=== PATIENT | male | born 1995 | race Two or more races ===

== ENCOUNTER 2024-08-30 16:21 | Inpatient (IN) | payer OTHER ==
[~2024-08-30] VITALS: Ht 177.8 cm; Wt 65.9 kg
[2024-08-30 17:01] LABS: PLATELET COUNT (AUTO) 537 K/uL (150-450); RED BLOOD CELL COUNT(AUTO) 5.33 MIL/uL (4.50-5.90); RED CELL DISTRIBUTION WIDTH 14.8 % (11.5-14.5); WHITE BLOOD COUNT (AUTO) 7.6 K/uL (4.5-11.0)
[2024-08-30] MEDS: SODIUM CHLORIDE 0.9% 1,000 ML IV ONE ×2 (17:07→19:16)
[2024-08-30] MEDS: ONDANSETRON HCL 4 MG/2 ML VIAL IVP ONE ×2 (17:07→18:44)
[2024-08-30 17:11] LABS: CALCIUM, TOTAL 9.1 mg/dL (8.8-10.5); CREATININE 0.96 mg/dL (0.60-1.30); GLOMERULAR FILTR. RATE CALC > 60 mL/min (>60); GLUCOSE,RANDOM 174 mg/dL (70-110); SODIUM SERUM 134 mmol/L (136-145); UREA NITROGEN, BLOOD 8 mg/dL (7-18)
[2024-08-30 17:15] LABS: ASPARTATE AMINOTRANSFERASE 14 U/L (15-37); TOTAL PROTEIN, SERUM 8.0 g/dL (6.4-8.2)
[2024-08-30 18:40] LABS: ALCOHOL, URINE DRUG SCREEN NEGATIVE (NEGATIVE); AMPHET/METH SCREEN,URINE NEGATIVE (NEGATIVE); BARBITURATE SCREEN, URINE NEGATIVE (NEGATIVE); CANNABINOID SCREEN,URINE NEGATIVE (NEGATIVE); COCAINE SCREEN,URINE NEGATIVE (NEGATIVE); METHADONE SCREEN, URINE NEGATIVE (NEGATIVE)
[2024-08-30 18:43] LABS: APPEARANCE,URINE CLEAR (CLEAR); GLUCOSE, URINE (UA) >=1000 mg/dL (NEGATIVE); LEUKOCYTE ESTERASE ,URINE NEGATIVE (NEGATIVE); NITRATE,URINE NEGATIVE (NEGATIVE); OCCULT BLOOD,URINE NEGATIVE (NEGATIVE); SPECIFIC GRAVITIY, URINE 1.029 (1.003-1.030)
[2024-08-30 18:44] LABS: ABG BASE EXCESS -14.0 mmol/L (-2.0-3.0); ABG CARBOXYHEMOGLOBIN 0.5 % (0.5-1.5); ABG HCO3 15.7 mmol/L (21.0-28.0); ABG METHEMOGLOBIN 0.9 % (0.0-1.5); ABG OXYGEN CONTENT 17.9 mL/dL (15.0-23.0); ABG OXYGEN SATURATION 99.0 % (94.0-98.0); ABG OXYHEMOGLOBIN 97.6 % (94.0-98.0); ABG PH 7.433 (7.350-7.450); ABG TOTAL HEMOGLOBIN 12.9 G/dL (13.5-17.5); FRACTIONATED INSPIRED OXYGEN 21.0 % (21-100.0); PO2, ARTERIAL BG 108.9 mmHg (83.0-108.0); SOURCE, BLOOD GAS ARTERIAL; TEMPERATURE, FAHRENHEIT, BG 97.9 FAHREN (96.0-98.6)
[2024-08-30] MEDS: SODIUM CHLORIDE 0.9% 2,000 ML IV ONE (18:44)
[2024-08-30 18:45] LABS: ABG PCO2 16 mmHg (32.0-48.0); ALLEN TEST, BLOOD GAS Positive; O2 DEVICE,BLOOD GAS ROOM AIR (ROOM AIR); SITE, BLOOD GAS RT RADIAL
[2024-08-30 18:46] LABS: ABG A-A DIFF O2 22.1 mmHg (10-20.0)
[2024-08-30 18:52] LABS: SQUAMOUS EPITHELIAL CELL,UR Rare /LPF (None Seen)
[2024-08-30 19:00] LABS: PH,URINE DRUG SCREEN 5.5 (5.0-8.0)
[2024-08-30] MEDS: INSULIN REGULAR, HUMAN 100 UNITS/ML IVP ONE (19:00)
[2024-08-30] MEDS ORDERED: ACETAMINOPHEN 325 MG TABLET PO PRN (19:00)
[2024-08-30] MEDS ORDERED: DEXTROSE 50%-WATER 25 GM/50 ML SYRINGE IVP PRN (19:00)
[2024-08-30] MEDS: MORPHINE SULFATE 4 MG/ML SYRINGE IVP ONE (19:16)
[2024-08-30] MEDS: INSULIN GLARGINE,HUM.REC.ANLOG 100 UNITS/ML SQ SCH (20:24)
[2024-08-30 20:46] LABS: GLUCOMETER DEV NAME(LOC) ER.7; GLUCOSE,POINT OF CARE 178 MG/DL (70-110)
[2024-08-30] MEDS: ONDANSETRON HCL 4 MG/2 ML VIAL IVP PRN (20:55)
[2024-08-30 21:22] VITALS: BP 138/74; PULSE 105; RESP 21; TEMP 98.1; O2SAT 100
[2024-08-30] MEDS: INSULIN LISPRO 100 UNITS/ML SQ PRN (21:53)
[2024-08-30 22:31] LABS: GLUCOMETER DEV NAME(LOC) 6S.1D; GLUCOSE,POINT OF CARE 236 MG/DL (70-110)
[2024-08-31 05:43] VITALS: BP 143/80; PULSE 121; RESP 20; TEMP 98.7; O2SAT 98
[2024-08-31 06:15] VITALS: BP 134/86; PULSE 108; RESP 19; TEMP 97.4; O2SAT 99
[2024-08-31] MEDS: METOCLOPRAMIDE HCL 5 MG/ML 2 ML VIAL IVP PRN (06:30)
[2024-08-31] MEDS: MORPHINE SULFATE 2 MG/ML SYRINGE IVP PRN (06:31)
[2024-08-31 07:06] LABS: GLUCOMETER DEV NAME(LOC) 6S.1D; GLUCOSE,POINT OF CARE 369 MG/DL (70-110)
[2024-08-31] MEDS: PANTOPRAZOLE SODIUM 40 MG/VIAL IVP SCH (08:09)
[2024-08-31] MEDS: INSULIN GLARGINE,HUM.REC.ANLOG 100 UNITS/ML SQ SCH (09:00)
[2024-08-31] MEDS: SODIUM CHLORIDE 0.9% 1,000 ML IV ONE (09:00)
[2024-08-31 11:36] LABS: GLUCOMETER DEV NAME(LOC) 6N.2C; GLUCOSE,POINT OF CARE 207 MG/DL (70-110)
[2024-08-31 15:47] VITALS: BP 120/76; PULSE 99; RESP 18; TEMP 99; O2SAT 100
[2024-08-31 15:48] VITALS: BP 120/76; PULSE 99; RESP 18; TEMP 99; O2SAT 100
[2024-08-31 19:37] VITALS: BP 128/86; PULSE 95; RESP 18; TEMP 99.1; O2SAT 100
[2024-08-31 20:05] LABS: GLUCOMETER DEV NAME(LOC) 6S.2; GLUCOSE,POINT OF CARE 255 MG/DL (70-110)
[2024-08-31] MEDS: ZOLPIDEM TARTRATE 5 MG TABLET PO PRN (21:11)
[2024-08-31 23:36] LABS: GLUCOMETER DEV NAME(LOC) 6N.2C; GLUCOSE,POINT OF CARE 163 MG/DL (70-110)
[2024-09-01] MEDS: MAGNESIUM HYDROXIDE SUSPENSION 30 ML UDCUP PO PRN (03:04)
[2024-09-01 03:33] VITALS: BP 135/77; PULSE 104; RESP 20; TEMP 98.2; O2SAT 98
[2024-09-01 06:49] LABS: CALCIUM, TOTAL 9.0 mg/dL (8.8-10.5); CREATININE 1.05 mg/dL (0.60-1.30); GLOMERULAR FILTR. RATE CALC > 60 mL/min (>60); GLUCOSE,RANDOM 269 mg/dL (70-110); SODIUM SERUM 135 mmol/L (136-145); UREA NITROGEN, BLOOD 3 mg/dL (7-18)
[2024-09-01] MEDS: SODIUM CHLORIDE 0.9% 1,000 ML IV ONE (11:37)
[2024-09-01 11:56] LABS: GLUCOMETER DEV NAME(LOC) 6N.2C; GLUCOSE,POINT OF CARE 273 MG/DL (70-110)
[2024-09-01 11:56] LABS: GLUCOMETER DEV NAME(LOC) 6N.2C; GLUCOSE,POINT OF CARE 238 MG/DL (70-110)
[2024-09-01 17:30] LABS: GLUCOMETER DEV NAME(LOC) 6S.1D; GLUCOSE,POINT OF CARE 238 MG/DL (70-110)
[2024-09-01 19:30] VITALS: BP 127/90; PULSE 110; RESP 18; TEMP 98.6; O2SAT 100
[2024-09-01 20:01] LABS: PLATELET COUNT (AUTO) 575 K/uL (150-450); RED BLOOD CELL COUNT(AUTO) 5.61 MIL/uL (4.50-5.90); RED CELL DISTRIBUTION WIDTH 15.4 % (11.5-14.5); WHITE BLOOD COUNT (AUTO) 7.1 K/uL (4.5-11.0)
[2024-09-02 02:05] VITALS: BP 121/66; PULSE 97; RESP 18; TEMP 98; O2SAT 100
[2024-09-02 02:31] LABS: GLUCOMETER DEV NAME(LOC) 6N.2C; GLUCOSE,POINT OF CARE 140 MG/DL (70-110)
[2024-09-02 06:45] LABS: GLUCOMETER DEV NAME(LOC) 6N.2C; GLUCOSE,POINT OF CARE 170 MG/DL (70-110)
[2024-09-02 08:00] VITALS: BP 117/73; PULSE 100; RESP 18; TEMP 98.2; O2SAT 100
[2024-09-02 09:26] LABS: GLUCOMETER DEV NAME(LOC) 6N.2C; GLUCOSE,POINT OF CARE 166 MG/DL (70-110)
[2024-09-02] MEDS: SODIUM CHLORIDE 0.9% 1,000 ML IV ONE (09:55)
[2024-09-02] MEDS ORDERED: FentaNYL CITRATE PF 100 MCG/2 ML VIAL IVP PRN (11:30)
[2024-09-02] MEDS ORDERED: MEPERIDINE-PF 25 MG/ML VIAL IVP PRN (11:30)
[2024-09-02 12:05] LABS: GLUCOMETER DEV NAME(LOC) SDS.; GLUCOSE,POINT OF CARE 159 MG/DL (70-110)
[2024-09-02 13:19] VITALS: BP 131/89; PULSE 93; RESP 18; TEMP 98.8; O2SAT 100
[2024-09-02 17:16] LABS: GLUCOMETER DEV NAME(LOC) 6N.2C; GLUCOSE,POINT OF CARE 169 MG/DL (70-110)
[2024-09-02 20:24] VITALS: BP 119/82; PULSE 77; RESP 18; TEMP 98.2; O2SAT 100
[2024-09-02] MEDS: PANTOPRAZOLE SODIUM 40 MG/VIAL IVP SCH (20:24)
[2024-09-03] VITALS: BP 122/82; PULSE 72; RESP 18; TEMP 98.2; O2SAT 100
[2024-09-03 05:49] VITALS: BP 111/75; PULSE 72; RESP 18; TEMP 97.7; O2SAT 100
[2024-09-03] MEDS: OXYGEN THERAPY IH SCH (08:01)
[2024-09-03 08:04] VITALS: BP 110/73; PULSE 73; RESP 18; TEMP 98.4; O2SAT 100
[2024-09-03 08:36] LABS: GLUCOMETER DEV NAME(LOC) 6S.2; GLUCOSE,POINT OF CARE 134 MG/DL (70-110)
[2024-09-03 08:36] LABS: GLUCOMETER DEV NAME(LOC) 6N.2C; GLUCOSE,POINT OF CARE 83 MG/DL (70-110)
[2024-09-03 08:36] LABS: GLUCOMETER DEV NAME(LOC) 6S.2; GLUCOSE,POINT OF CARE 54 MG/DL (70-110)
[2024-09-03 08:40] LABS: GLUCOMETER DEV NAME(LOC) 6S.1D; GLUCOSE,POINT OF CARE 188 MG/DL (70-110)
[2024-09-03 08:40] LABS: GLUCOMETER DEV NAME(LOC) 6S.1D; GLUCOSE,POINT OF CARE 127 MG/DL (70-110)
[2024-09-03 11:50] LABS: GLUCOMETER DEV NAME(LOC) 6S.2; GLUCOSE,POINT OF CARE 134 MG/DL (70-110)
[2024-09-03 15:32] VITALS: BP 119/85; PULSE 70; RESP 20; TEMP 98.1; O2SAT 100
[2024-09-03 15:45] LABS: GLUCOMETER DEV NAME(LOC) 6N.2C; GLUCOSE,POINT OF CARE 69 MG/DL (70-110)
[2024-09-03 17:00] LABS: GLUCOMETER DEV NAME(LOC) 6N.2C; GLUCOSE,POINT OF CARE 129 MG/DL (70-110)
[2024-09-03 19:50] VITALS: BP 117/73; PULSE 68; RESP 18; TEMP 98.1; O2SAT 100
[2024-09-03] MEDS: HEPARIN SODIUM,PORCINE 5,000 UNITS/ML VIAL SQ SCH (21:00)
[2024-09-03 22:01] LABS: GLUCOMETER DEV NAME(LOC) 6N.2C; GLUCOSE,POINT OF CARE 129 MG/DL (70-110)
[2024-09-03 23:24] VITALS: BP 113/77; PULSE 65; RESP 18; TEMP 98.1; O2SAT 99
[2024-09-04 05:34] VITALS: BP 109/78; PULSE 60; RESP 18; TEMP 97.9; O2SAT 99
[2024-09-04 07:46] LABS: GLUCOMETER DEV NAME(LOC) 6N.2C; GLUCOSE,POINT OF CARE 109 MG/DL (70-110)
[2024-09-04 08:00] VITALS: BP 120/75; PULSE 66; RESP 19; TEMP 97.5; O2SAT 99
[2024-09-04] MEDS: INSULIN GLARGINE,HUM.REC.ANLOG 100 UNITS/ML SQ SCH (08:40)
[2024-09-04 13:16] LABS: GLUCOMETER DEV NAME(LOC) 6N.2C; GLUCOSE,POINT OF CARE 103 MG/DL (70-110)
[2024-09-04 19:00] LABS: GLUCOMETER DEV NAME(LOC) 6S.1D; GLUCOSE,POINT OF CARE 263 MG/DL (70-110)
[2024-09-04 19:38] VITALS: BP 109/60; PULSE 85; RESP 18; TEMP 98.3; O2SAT 99
[2024-09-04] MEDS: DOCUSATE SODIUM 100 MG CAPSULE PO SCH (20:30)
[2024-09-04 21:45] LABS: GLUCOMETER DEV NAME(LOC) 6N.2C; GLUCOSE,POINT OF CARE 238 MG/DL (70-110)
[2024-09-05 01:55] LABS: GLUCOMETER DEV NAME(LOC) 6S.2; GLUCOSE,POINT OF CARE 140 MG/DL (70-110)
[2024-09-05 04:56] VITALS: BP 103/67; PULSE 65; RESP 18; TEMP 98.1; O2SAT 97
[2024-09-05 06:50] LABS: GLUCOMETER DEV NAME(LOC) 6S.2; GLUCOSE,POINT OF CARE 208 MG/DL (70-110)
[2024-09-05 08:20] VITALS: BP 120/79; PULSE 79; RESP 17; TEMP 97.8; O2SAT 97
[2024-09-05] MEDS ORDERED: INSLAN SQ (09:31)
[2024-09-05] MEDS ORDERED: METO5TAB95 PO (09:32)
[2024-09-05] MEDS ORDERED: PANT-31 PO (09:33)
[2024-09-05 10:15] LABS: PLATELET COUNT (AUTO) 495 K/uL (150-450); RED BLOOD CELL COUNT(AUTO) 5.22 MIL/uL (4.50-5.90); RED CELL DISTRIBUTION WIDTH 15.3 % (11.5-14.5); WHITE BLOOD COUNT (AUTO) 4.1 K/uL (4.5-11.0)
[2024-09-05 10:24] LABS: CALCIUM, TOTAL 8.8 mg/dL (8.8-10.5); CREATININE 0.74 mg/dL (0.60-1.30); GLOMERULAR FILTR. RATE CALC > 60 mL/min (>60); GLUCOSE,RANDOM 192 mg/dL (70-110); SODIUM SERUM 138 mmol/L (136-145); UREA NITROGEN, BLOOD 3 mg/dL (7-18)
[2024-09-05 11:45] LABS: GLUCOMETER DEV NAME(LOC) 6S.1D; GLUCOSE,POINT OF CARE 211 MG/DL (70-110)
[2024-09-05] MEDS: POTASSIUM CHLORIDE 20 MEQ ER TABLET PO ONE (12:13)
[2024-09-05 12:43] VITALS: BP 134/88; PULSE 66; RESP 18; TEMP 98.5; O2SAT 100
== END 2024-09-05 13:00 | disposition home or self-care (01) | DRG 48 ==
LOC: EMS 16:25 → EDH 18:59 → 6S 21:14
PROVIDERS: ADMIT Internal Medicine; ATTEND Internal Medicine
PROC: 0DB78ZX Excision of Stomach, Pylorus, Via Natural or Artificial Opening Endoscopic, Diagnostic (ICD-10-PCS; 2024-09-02)
PROC: 0DB98ZX Excision of Duodenum, Via Natural or Artificial Opening Endoscopic, Diagnostic (ICD-10-PCS; 2024-09-02)
PROC: 0DB58ZX Excision of Esophagus, Via Natural or Artificial Opening Endoscopic, Diagnostic (ICD-10-PCS; principal; 2024-09-02 12:10)
DX: E10.43 Type 1 diabetes mellitus with diabetic autonomic (poly)neuropathy (principal); E44.0 Moderate protein-calorie malnutrition; K31.84 Gastroparesis; K29.70 Gastritis, unspecified, without bleeding; E10.65 Type 1 diabetes mellitus with hyperglycemia; K20.90 Esophagitis, unspecified without bleeding; Z68.20 Body mass index [BMI] 20.0-20.9, adult; Z83.3 Family history of diabetes mellitus; Z88.0 Allergy status to penicillin; Z91.199 Patient's noncompliance with other medical treatment and regimen due to unspecified reason
CPT/HCPCS: 71045; 74019; 76700; 80048; 80076; 80307; 81001; 82009; 82805; 82962; 83036; 83690; 85025; 88305; 88312; 93005; 99291; J1644; J1815; J2270; J2405; J2470; J2765; J7030; 36415-L1; 36415-TC